=== PATIENT | male | born 1955 | race Caucasian/White ===

== ENCOUNTER 2020-05-05 10:37 | Emergency (ER) | payer OTHER ==
[~2020-05-05] VITALS: Ht 188 cm; Wt 113.4 kg
[~2020-05-05 10:37] MED LIST: ASPIRIN EC325 M1 PO; COLACE100 MG PO; DESYREL50 MG PO; DYAZIDE 37.5-21 EACH PO; Dapsone PO; IRON325 PO; NORCO 5-325 TA1 EACH; OXYIR 5 MG CAPSU5 M1; PRENATAL PO; PRILOSEC 20 MG20 MG PO; VERAPAMIL HCL240 MG PO; XARELTO10 M1 PO
[2020-05-05] MEDS ORDERED: PROAIR HFA8.5 GM INH (10:57)
[2020-05-05] MEDS ORDERED: ALLOPURINOL 10100 M3 PER TUBE (10:58)
[2020-05-05] MEDS ORDERED: ELIQUIS5 MG PER TUBE (11:00)
[2020-05-05] MEDS ORDERED: VITCB500GO PER TUBE (11:01)
[2020-05-05 14:00] VITALS: BP 149/69
== END 2020-05-05 14:53 ==
LOC: ER 10:37
DX: J95.03 Malfunction of tracheostomy stoma (principal); I10 Essential (primary) hypertension; F41.9 Anxiety disorder, unspecified; Z96.642 Presence of left artificial hip joint; Z79.899 Other long term (current) drug therapy; Z91.048 Other nonmedicinal substance allergy status; Y83.8 Other surgical procedures as the cause of abnormal reaction of the patient, or of later complication, without mention of misadventure at the time of the procedure; Y82.8 Other medical devices associated with adverse incidents

== ENCOUNTER 2020-05-11 19:26 | Inpatient (IN) | payer OTHER ==
[~2020-05-11] VITALS: Ht 182.9 cm; Wt 121.3 kg
[~2020-05-11 19:26] MED LIST changes: +ALLOPURINOL 10100 M3 PER TUBE; +ELIQUIS5 MG PER TUBE; +PROAIR HFA8.5 GM INH; +VITCB500GO PER TUBE
[2020-05-11 19:28] VITALS: BP 131/68
[2020-05-11 19:56] LABS: ABSOLUTE NEUTROPHILS 6.6 thou/uL (1.4-8.2); BASOPHILS 0.5 % (0.0-2.0); EOSINOPHILS 7.6 % (0.0-3.0); HEMATOCRIT 35.5 % (42.0-52.0); HEMOGLOBIN 11.9 gm/dL (14.0-18.0); LYMPHOCYTES 26.1 % (24.0-44.0); MCH 30.2 pg (26.0-34.0); MCHC 33.5 g/dL (28.0-37.0); MCV 90.1 fL (80.0-100.0); PLATELET COUNT 274 thou/uL (150-400); POLYS 60.8 % (36.0-66.0); RBC 3.94 mil/uL (4.50-6.00); RDW 14.7 % (10.5-14.5); WBC 10.8 thou/uL (4.0-11.0)
[2020-05-11] MEDS ORDERED: ALBUTEROL2.5 MG/0.5 INH (20:01)
[2020-05-11] MEDS ORDERED: BISACODYL10 MG PO (20:03)
[2020-05-11 20:05] LABS: APTT 31.7 Seconds (24.5-32.8); INR 1.2; PROTIME 12.4 Seconds (9.3-11.4)
[2020-05-11] MEDS ORDERED: PULMICORT0.25 MG/3 (20:05)
[2020-05-11] MEDS ORDERED: CHLORHEXIDINE PO (20:06)
[2020-05-11] MEDS ORDERED: CELEXA 10 MG TA10 M1 PO (20:09)
[2020-05-11] MEDS ORDERED: NEURONTIN300 MG PER TUBE (20:09)
[2020-05-11 20:20] LABS: URINE BILIRUBIN NEGATIVE (Negative); URINE BLOOD NEGATIVE (Negative); URINE CLARITY CLEAR; URINE COLOR YELLOW; URINE GLUCOSE-RANDOM* NEGATIVE (Negative); URINE KETONES NEGATIVE (Negative); URINE LEUKOCYTES-REFLEX NEGATIVE (Negative); URINE NITRITE-REFLEX NEGATIVE (Negative); URINE PROTEIN (DIPSTICK) NEGATIVE (Negative); URINE SPECIFIC GRAVITY 1.015 (1.005-1.035)
[2020-05-11 20:32] LABS: CALCIUM 8.8 mg/dL (8.5-10.1); CREATININE 0.7 mg/dL (0.7-1.3); POTASSIUM 3.2 mmol/L (3.5-5.1)
[2020-05-11 20:35] LABS: ALBUMIN 2.9 g/dL (3.4-5.0); TOTAL BILIRUBIN 0.4 mg/dL (0.2-1.0); TOTAL PROTEIN 7.3 g/dL (6.4-8.2)
[2020-05-11] MEDS ORDERED: HYDRALAZINE 5050 MG PO (20:49)
[2020-05-11] MEDS ORDERED: HYDRALAZINE 5050 MG PER TUBE (20:49)
[2020-05-11] MEDS ORDERED: IPRAT-ALBUT 0.5-3 ML INH (20:50)
[2020-05-11] MEDS ORDERED: ACIDOPHILUS1 EAC5 PER TUBE (20:50)
[2020-05-11] MEDS ORDERED: MELATONIN3 M1 PO (20:51)
[2020-05-11] MEDS ORDERED: LEVOTHYROXINE25 MC1 PER TUBE (20:51)
[2020-05-11] MEDS ORDERED: MELATIN3 MG PER TUBE (20:52)
[2020-05-11] MEDS ORDERED: MIRALAX17 G1 PER TUBE (20:52)
[2020-05-11] MEDS ORDERED: DAILY VALUE1 EAC1 PER TUBE (20:53)
[2020-05-11] MEDS ORDERED: NORVASC10 MG PER TUBE (20:53)
[2020-05-11] MEDS ORDERED: ROXICODONE5 MG PER TUBE (20:53)
[2020-05-11] MEDS ORDERED: EFFER-K 20 MEQ20 ME1 PER TUBE (20:54)
[2020-05-11] MEDS ORDERED: PROPRANOLO40 MG/5 ML PER TUBE (20:55)
[2020-05-11] MEDS ORDERED: PROSOURCE PROT946 ML PER TUBE (20:56)
[2020-05-11] MEDS ORDERED: SENNA PLUS TAB1 EACH PER TUBE (20:56)
[2020-05-11] MEDS ORDERED: SIMETHICONE125 M1 PER TUBE (20:57)
[2020-05-11] MEDS ORDERED: ZINC SULFATE220 MG PO (20:58)
[2020-05-11] MEDS ORDERED: ZINC SULFATE220 MG PER TUBE (20:58)
[2020-05-11] MEDS ORDERED: TRAZODONE HCL50 MG PER TUBE (20:58)
[2020-05-11] MEDS ORDERED: XANAX 0.5 MG0.5 MG PER TUBE (20:58)
[2020-05-11] MEDS ORDERED: SECURA PROTECTI50 GM TOP (20:59)
[2020-05-11 21:21] VITALS: BP 120/63
[2020-05-11 21:49] VITALS: BP 138/62
[2020-05-11 22:26] VITALS: BP 134/69
[2020-05-12 03:42] VITALS: BP 146/72
[2020-05-12 07:54] VITALS: BP 151/69
--- NOTE | 2020-05-12 08:05 | NUR ---
admit pt admitted from [facility] through er for pui r/o covid, wound care, mucous plug to trach t tube trach cleared in ed on tube with humidified o2 pt yelling out in pain 2 doses of fentanyl given without effect and 15 mg toradol ivp with slight effect pt slept for awhile after picture of right buttock wound, wound care consulted prafo boots on pt requesting removal but left in place continue poc.
--- NOTE | 2020-05-12 10:17 | EKG ---
[address] [place] [address] ELECTROCARDIOGRAM REPORT Name: TINY GOMEZ Room #: 352-P ADM IN M.R.#: [id number] Admission: 05/11/20 Attend Phys: Roland Fuller MD Discharge: Date of : 51 Report #: [id number] [facility] ED Test Date: 2020-05-11 Test Time: 19:41:56 Pat Name: TINY GOMEZ Department: Room: [facility] Gender: M Inspector [employer]: monty : 1955 Requested By: Domenioc Morris Order Number: [id number] MD: Davie Oh Measurements Intervals [place] Rate: 65 P: 11 AL: 187 QRS: 1 QRSD: 105 T: 49 QT: 420 QTc: 437 Interpretive Statements Sinus rhythm Baseline wander in lead(s) V4 No previous ECG available for comparison Electronically Signed On 05-12-2020 10:17:42 PLANT OPERATIONS COORDINATOR by Davie Oh [email or web address] <ELECTRONICALLY SIGNED> By: Davie Oh MD 05/12/207 40 40 MD BUBBA Gracia
[2020-05-12 12:21] VITALS: BP 151/92
[2020-05-12 15:33] LABS: HEMATOCRIT 31.1 % (42.0-52.0); HEMOGLOBIN 10.2 gm/dL (14.0-18.0); MCH 29.7 pg (26.0-34.0); MCV 90.1 fL (80.0-100.0); RBC 3.45 mil/uL (4.50-6.00); RDW 14.8 % (10.5-14.5); WBC 8.1 thou/uL (4.0-11.0)
[2020-05-12 15:37] LABS: CALCIUM 8.8 mg/dL (8.5-10.1); CREATININE 0.9 mg/dL (0.7-1.3); MAGNESIUM 1.4 mg/dL (1.8-2.4)
[2020-05-12 15:41] LABS: POTASSIUM 2.7 mmol/L (3.5-5.1)
[2020-05-12 15:42] VITALS: BP 165/78
--- NOTE | 2020-05-12 17:03 | NUR ---
RN ASSUMED PT'S CARE AT 0700AM, PT IS ON MASK O2 95% AT TRACH TO KEEP O2SAT AT 94-100%, PT HAS MEDICATIONS FOR PAIN, PT CAN FOLLOW COMMANDS, PT STARTS IV ABX AND PPN , HOLD TUBE FEEDING UNTILL VISUAL EDUCATION TEACHER TO SEE PT TOMORROW. PT'S COVID TEST IS NEGATIVE, PT'S ISOLATION HAS DC, PT HAS POTASSIUM AND MAGNESSIUM REPLACEMENT FOR ABNORMAL LAB RESULTS,RN WILL REPORT TO NEXT SHIFT TO CALL ENT CONSULT FOR RAFI VELASCO.
[2020-05-12 20:00] VITALS: BP 136/67
[2020-05-12 23:18] LABS: MAGNESIUM 1.7 mg/dL (1.8-2.4)
[2020-05-12 23:21] LABS: POTASSIUM 2.7 mmol/L (3.5-5.1)
[2020-05-13 00:01] VITALS: BP 139/68
[2020-05-13 03:00] VITALS: BP 130/68
--- NOTE | 2020-05-13 06:25 | NUR ---
PROGRESS PT ALERT AND ORIENTED BUT VERY ANXIOUS. YELLS OUT FREQUENTLY HARD TO CALM HIM DOWN HYDROMORPHONE GIVEN FOR PAIN X 2 WITH EFFECT PT SETTLED AND SLEPT FOR AWHILE AFTER. COMPLETE BEDBATH GIVEN AND SKIN MOISTURIZED SKIN DRY AND FLAKY. PERIAREA DRY RED AND PEELING FROM EXCORIATION CLEANSED AND BARRIER CREAM APPLIED. SWANSON CATHETER IN PLACE LOTS OF DRIED DRAINAGE CLEANSED FROM CATHETER AND SUROUNDING AREA. PT MOUTH SWABBED AND DENTURES PLACED IN DENTURE CUP. PT HAS CONTRACTURES OF BOTH FEET AND HAS SCD'S AND PRAFO BOOTS IN PLACE. PT TO TRANSFER TO ROOM 217 SOON REPORT IS GIVEN.
[2020-05-13 07:28] LABS: HEMATOCRIT 32.8 % (42.0-52.0); HEMOGLOBIN 10.7 gm/dL (14.0-18.0); MCH 29.8 pg (26.0-34.0); MCHC 32.8 g/dL (28.0-37.0); MCV 90.9 fL (80.0-100.0); RBC 3.6 mil/uL (4.50-6.00); RDW 14.7 % (10.5-14.5); WBC 6.5 thou/uL (4.0-11.0)
[2020-05-13 07:34] VITALS: BP 132/53
[2020-05-13 07:48] LABS: CALCIUM 9.2 mg/dL (8.5-10.1); CREATININE 0.7 mg/dL (0.7-1.3); POTASSIUM 3.4 mmol/L (3.5-5.1)
[2020-05-13 09:03] LABS: MAGNESIUM 1.8 mg/dL (1.8-2.4)
--- NOTE | 2020-05-13 10:02 | NUR ---
Nutrition: Pt usual diet is [facility] soft with thin liquids. REC ST eval if indicated as pt is currently NPO. REC D/C PPN when TF starts and diet advanced. TF order as follows: Jevity 1.5 at 80 mL/hr x 10 hrs (8p-6a)-closest equivalent to pt's usual regimen. Will order per Dr Ren.
[2020-05-13 11:22] VITALS: BP 130/60
--- NOTE | 2020-05-13 16:24 | NUR ---
TO UNIT FROM 3W BY BED. DENIES CP, SOA. SR/SA PER TELE. C/O BILAT LEG PAIN; MEDICATED FOR SAME ORDERED. FALL PRECAUTIONS IN PLACE.
[2020-05-13 16:45] VITALS: BP 139/62
[2020-05-13 20:08] VITALS: BP 150/73
[2020-05-14 03:40] VITALS: BP 153/73
[2020-05-14 05:39] LABS: HEMATOCRIT 32.8 % (42.0-52.0); HEMOGLOBIN 10.8 gm/dL (14.0-18.0); MCHC 33.1 g/dL (28.0-37.0); MCV 90.9 fL (80.0-100.0); RBC 3.61 mil/uL (4.50-6.00); WBC 5.6 thou/uL (4.0-11.0)
[2020-05-14 06:08] LABS: CALCIUM 9.2 mg/dL (8.5-10.1); CREATININE 0.8 mg/dL (0.7-1.3)
[2020-05-14 07:30] VITALS: BP 152/78
[2020-05-14 12:00] VITALS: BP 152/81
--- NOTE | 2020-05-14 13:42 | NUR ---
Patient admits from [facility] with hypoxia. Patient has trach and prev positive for COVID. Patient is on skilled care at facility not ltc. Patient prev at [facility] then transferred to [facility] 04/25/19. Patient alert/orientated but yells out at times. Sp with sister Keri reviewed role of casemgt. Plan return to [facility] once stable. Keri was not aware patient transferred to hospital. Requested [facility] call sister. Casemgt following.
[2020-05-14 15:30] VITALS: BP 157/69
--- NOTE | 2020-05-14 15:53 | NUR ---
AAOX4. REMAINS VERY ANXIOUS. MEDICATED FOR PAIN ORDERED. TURNED. ZGARD APPLIED TO BILAT BUTTOCKS, EXCORIATED. SR PER TELE. FALL PRECAUTIONS IN PLACE.
[2020-05-14 20:45] VITALS: BP 102/66
[2020-05-15 04:05] VITALS: BP 157/61
[2020-05-15 05:15] LABS: HEMATOCRIT 30.2 % (42.0-52.0); MCH 30.1 pg (26.0-34.0); MCV 91.2 fL (80.0-100.0); RBC 3.31 mil/uL (4.50-6.00); RDW 14.4 % (10.5-14.5); WBC 6.1 thou/uL (4.0-11.0)
[2020-05-15 05:34] LABS: CALCIUM 8.8 mg/dL (8.5-10.1); CREATININE 0.7 mg/dL (0.7-1.3)
[2020-05-15 05:45] LABS: POTASSIUM 2.9 mmol/L (3.5-5.1)
--- NOTE | 2020-05-15 07:33 | NUR ---
ASSUMED PT CARE AT 1900. VSS. PT A&0X4. ANXIOUS. TUBE FEEDING STARTED AT 20ML/HR 0300AM TODAY. TUBE FEEDING APPEARS CLOGGED THIS AM, REPORT PASSED ON TO DAY NURSE REGARDING THIS. OTHERWISE PT IS STABLE, WILL CONTINUE TO MONITOR
[2020-05-15 08:18] VITALS: BP 152/78
[2020-05-15] MEDS ORDERED: TOBI 300 M300 MG/5 M INH (14:58)
[2020-05-15] MEDS ORDERED: CIPRO500 MG PER TUBE (14:58)
[2020-05-15 16:07] VITALS: BP 152/79
--- NOTE | 2020-05-15 16:54 | NUR ---
Ten[facility] plan dc today. When arranging transport for return patient on 15 liters oxygen which cannot be accomadated at facility. Patient prec with trach capped and oxygen as needed. DC cancelled and Resp therapy weaning oxygen. Updated sister who was at bedside today that transfer cancelled. requested facility if they can inquire into humidified air for patient with a trach shield.
--- NOTE | 2020-05-15 18:49 | NUR ---
PT IS ALERT AND ORIENTED X4, ANXIOUS. PT HAS TRACH, MIDLINE, WITH TRACH SHIELD, 15L AT 35%. PEG TUBE INITIALLY NOT FLUSHING WHEN TAKING OVER CARES. PEG TUBE FLUSHES. SPEECH CONSULTED, VIDEO SWALLOW TEST CONDUCTED. POC IS TO HAVE PT EAT DIET DURING DAY AND PEG TUBE AT NIGHT RUN FOR TEN HOURS. PT IS AWARE OF PAIN MGMT. CONTINUE TO MONITOR AND ASSESS PT LEVEL OF PAIN, AND O2 SATURATION. WOUND CARE CONSULTED. FALL PRECAUTIONS IN PLACE. NO CONCERNS AT THIS TIME. INTENTION TO DISCHARGE TO FACILITY 05/16/2020.
[2020-05-15 19:00] VITALS: BP 154/73
[2020-05-16 04:45] VITALS: BP 149/72
[2020-05-16 04:58] LABS: HEMATOCRIT 31.3 % (42.0-52.0); HEMOGLOBIN 10.2 gm/dL (14.0-18.0); MCH 29.6 pg (26.0-34.0); MCHC 32.6 g/dL (28.0-37.0); MCV 90.7 fL (80.0-100.0); RBC 3.45 mil/uL (4.50-6.00); RDW 14.8 % (10.5-14.5); WBC 5.9 thou/uL (4.0-11.0)
[2020-05-16 05:09] LABS: CALCIUM 9.2 mg/dL (8.5-10.1); CREATININE 0.9 mg/dL (0.7-1.3); POTASSIUM 3.1 mmol/L (3.5-5.1)
[2020-05-16 07:25] VITALS: BP 152/76
[2020-05-16 10:45] VITALS: BP 152/76
--- NOTE | 2020-05-16 11:42 | NUR ---
Possible dc back to snf at [facility] today pending CT Chest. [place] liason updated. Pt will need 4liters of o2 with humidification per t-tube or trach shield. DC sr. merchandise planner to coordinate [facility] transport once dc orders confirmed and faxed to [place]. Chart copy is in progress. Care team updated. Pt aware. Will update his sister once dc and time is confirmed.
--- NOTE | 2020-05-16 12:07 | HC ---
[facility] [place] [address] CONSULTATION Name: TINY GOMEZ Room #: 217-P ADM IN M.R.#: [id number] Admission: 05/11/20 Attend Phys: Roland Fuller MD Discharge: Date of : 51 Report #: [id number] THIS REPORT FOR: cc: Demarcus Snow James D. DO Barry, Joseph W. MD ~ DATE OF SERVICE: 05/15/2020 INFECTIOUS DISEASE CONSULTATION ATTENDING PHYSICIAN: Dr. Ren. REASON FOR EVALUATION: Recommendations for antibiotic therapy in a patient with chronic respiratory failure, does have a tracheostomy, on supplemental oxygen, has isolation of Pseudomonas from sputum. HISTORY OF PRESENT ILLNESS: Chart reviewed, patient examined. This is a 64-year-old with fairly extensive medical history, has underlying lung disease as well as celiac disease, who has had severe pneumonitis relative to COVID-19 infection. This led to prolonged mechanical ventilatory support and ultimately a tracheostomy and PEG replaced as well. He has been on supplemental oxygen since his discharge and has been in a facility. He is having increasing difficulty with frequent cough, respiratory distress, was found to be hypoxic with saturations in the 80s due to concerns about worsening situation. He was evaluated in the Emergency Room, was confirmed to be COVID negative. Chest x-ray showed cardiomegaly, mediastinal widening and severe bilateral infiltrates. Sputum culture was collected, had polymicrobial growth including corynebacterium as well as Pseudomonas aeruginosa, the latter resistant in vitro to aztreonam and meropenem. He did undergo a swallow study, which was unremarkable with no evidence of aspiration. He is currently on supplemental oxygen at baseline, trach mask at 35%. Denies significant pain, although does admit to headache and perhaps right ear discomfort. He has been empirically placed on vancomycin as well as Zosyn. During the hospitalization, he was evaluated by ENT, they actually put a larger tracheostomy tube in place, seems to have improved the overall situation. ALLERGIES: None known. CURRENT MEDICATIONS: Include vancomycin, atropine, albuterol inhaler, trazodone, acetylcysteine, lorazepam, ascorbic acid, citalopram, amlodipine, gabapentin, budesonide, levothyroxine, Zosyn. PAST MEDICAL HISTORY: History of celiac disease, apparently dermatitis herpetiformis, chronic respiratory failure due to sequelae from COVID-19 infection and pneumonia, COPD, hepatitis C, chronic anemia, hypothyroidism, [place] [address] CONSULTATION Name: TINY GOMEZ Room #: 217-P [facility]#: [id number] Admission: 05/11/20 Attend Phys: Roland Fuller MD Discharge: Date of : 51 Report #: [id number] depression, anxiety, history of gout, BPH, peripheral neuropathy, hypertension. SOCIAL HISTORY: Former smoker. FAMILY HISTORY: Noncontributory. REVIEW OF SYSTEMS: Otherwise, unremarkable 10-point review of systems. PHYSICAL EXAMINATION: GENERAL: Appears chronically ill. He is obese, although undernourished, [id number] distress. VITAL SIGNS: Temperature 97, pulse 73, respirations 18, blood pressure 152/78. SKIN: Warm, dry, no rashes. HEENT AND NECK: Has tracheostomy in place with shield. Neck appears to be supple. Normocephalic. Extraocular muscles intact. LUNGS: Few scattered coarse breath sounds. HEART: Distant, regular. I do not appreciate a murmur. ABDOMEN: Obese. Mildly firm, nontender. EXTREMITIES: No cyanosis. GENITOURINARY AND RECTAL: Deferred. LABORATORY DATA: Sodium 138, potassium 2.9, chloride 103, bicarbonate is 27, anion gap of 8, BUN and creatinine 11 and 0.7. CBC: White count 6.1, H and H 10.0 and 30.2, platelets of 186. Sputum culture growth of corynebacterium and Pseudomonas. Gram stain showed rare gram-positive cocci, moderate gram-positive rods with a few PMNs, peripheral infiltrates, perihilar infiltrates, widening of central mediastinum. Blood cultures are sterile thus far. MRSA PCR surveillance was positive as well. ASSESSMENT: Chronic respiratory failure complicated by pneumonitis with isolation of Pseudomonas, also other factors, I think including mucus plugging as well as likely undersized trach that has been corrected. He generally feels better. He is still on supplemental oxygen, although it is not clear he has got significant underlying lung disease. We will transition to fluoroquinolone and inhaled tobramycin. I think we can discontinue the vancomycin, critically ill to continue supportive measures, optimize nutritional status. Ultimately wean off tracheostomy, discussed with the patient's family member. <ELECTRONICALLY SIGNED> By: Zev Shea MD 05/16/20 1207 [id number] Zev Shea MD /nt
--- NOTE | 2020-05-16 13:10 | NUR ---
DISCHARGE ORDERS/SUMMARY WERE FAXED TO [facility] BY PATI/COOK SUPERVISOR. [facility] WILL FIREMAN PATIENT AT TODAY AT 14:00. PATIENT'S SISTER - ROJAS WAS NOTIFIED OF TIME OF TRANSFER. NURSING NOTIFIED AND CHART COPY COMPLETED. [facility] P [phone].
--- NOTE | 2020-05-16 14:03 | NUR ---
ASSUMED CARE PT SHIFT CHANGE. VSS. PT ALERT AND ORIENTED. O2 SATS WNL 35%. PT ON 4L O2 TOLERATING WELL. CT SCAN NEG FOR PE. MAG LOW REPLACED. DC ORDERS FOR FACILITY. REPORT TO BE CALLED. PT LEFT UNIT VIA AMBULANCE AT APPROX 1400 WITH ALL BELONGINGS.
--- NOTE | 2020-05-16 14:32 | HC ---
[facility] [place] [address] CONSULTATION Name: TINY GOMEZ Room #: 217-P [facility] IN M.R.#: [id number] Admission: 05/11/20 Attend Phys: Roland Fuller MD Discharge: 05/16/20 Date of : 51 Report #: [id number] THIS REPORT FOR: cc: Demarcus Snow James D. DO Stephens, Thad A. MD ~ DATE OF SERVICE: 05/13/2020 CHIEF COMPLAINT: Sacral decubitus ulcer. HISTORY OF PRESENT ILLNESS: This is a 64-year-old white male who is a resident in a long-term care facility, who was brought in for mucous plugging of his tracheostomy site. Upon admission, the patient was noted to have a sacral decubitus ulcer, which we have been asked to follow up for. The patient denies any other associated wounds at this time. Nursing staff denies any new wounds as well. The patient states he has had this wound for several weeks and was a result of being hospitalized for COVID-19 respiratory infection. PAST MEDICAL HISTORY: Significant for pneumonia, COPD, hepatitis C, depression, COVID-19 infection, dysphagia, hypertension, and pulmonary embolism. CURRENT MEDICATIONS: Multiple, I reviewed the patient's medication list. DRUG ALLERGIES: None. SOCIAL HISTORY: The patient states that he is essentially bedbound and is currently residing in a long-term care facility. FAMILY HISTORY: Not pertinent to current medical condition. REVIEW OF SYSTEMS: CONSTITUTIONAL: The patient denies fevers or chills. NEUROLOGIC: The patient complains of generalized overall weakness. EYES: No complaints. ENT: No complaints. CARDIAC: The patient denies chest pain, palpitations or peripheral edema. RESPIRATORY: The patient complains of shortness of breath and had associated mucus plugging of his tracheostomy site. GASTROINTESTINAL: The patient denies nausea, vomiting, or abdominal pain. GENITOURINARY: The patient denies urgency or frequency. MUSCULOSKELETAL: No complaints. SKIN: The patient has decubitus ulcers in the sacral region. PHYSICAL EXAMINATION: VITAL SIGNS: Stable. The patient is afebrile. [address] [address] CONSULTATION Name: TINY GOMEZ Room #: 217-P [facility] IN M.R.#: [id number] Admission: 05/11/20 Attend Phys: Roland Fulelr MD Discharge: 05/16/20 Date of : 51 Report #: [id number] GENERAL: This is an alert and oriented x2, person and place, but not time, chronically ill-appearing white male who is in no obvious distress. HEENT: Normocephalic, atraumatic. Mucous membranes are dry. Pupils are round. Sclerae are white. NECK: Tracheostomy, T-tube is in place. LUNGS: Diminished breath sounds heard throughout with rhonchi heard throughout. HEART: Regular. ABDOMEN: Soft, nontender. EXTREMITIES: The patient moves all extremities with slight difficulty. Bilateral heels are intact. NEUROLOGIC: Cranial nerves 2-12 grossly intact. Motor and sensory grossly intact. Evaluation of sacrococcygeal region reveals stage 3 decubitus ulcers, which are scattered superficial in the sacral-gluteal region. No signs of overt infection. LABORATORY DATA: White count 6.5, hemoglobin 10.7. CRP is 63.5. Albumin is 2.9. IMPRESSION: 1. Multiple stage 3 decubitus ulcers in the sacral-gluteal region, all superficial without signs of infection. 2. Acute on chronic hypoxic respiratory failure with mucus plugging. 3. Hypothyroidism. 4. Hypertension. 5. History of dysphagia. 6. Moderate protein-calorie malnutrition, albumin 2.9. 7. Generalized weakness. PLAN: We will have the patient placed on low air loss surface, have him turned every 2 hours. We will start Z-Guard to the sacral-gluteal ulcers and leave open to air. We will do this twice daily and p.r.n. Make sure we maximize the patient's oral protein supplementation for healing. We will utilize physical and occupational therapies for strengthening. We will continue all other current medications. I appreciate ability to consult. We will continue to follow the patient. <ELECTRONICALLY SIGNED> By: Liang Rosa MD 05/16/20 1432 1320 1333 Liang Rosa MD /nt
== END 2020-05-16 14:05 | DRG 205 ==
LOC: ER 19:26 → 3W 21:16 → EROBS 21:16 → 2N 21:16 → 3W 22:05 → 2N 05-13 09:01
PROVIDERS: Emergency Medicine; Internal Medicine; ADMIT Hospitalist; ATTEND Hospitalist
DX: J95.03 Malfunction of tracheostomy stoma (principal); L89.153 Pressure ulcer of sacral region, stage 3; L89.303 Pressure ulcer of unspecified buttock, stage 3; J96.21 Acute and chronic respiratory failure with hypoxia; J15.1 Pneumonia due to Pseudomonas; J96.22 Acute and chronic respiratory failure with hypercapnia; T17.590A Other foreign object in bronchus causing asphyxiation, initial encounter; E44.0 Moderate protein-calorie malnutrition; J44.0 Chronic obstructive pulmonary disease with (acute) lower respiratory infection; N18.30 Chronic kidney disease, stage 3 unspecified; Z96.642 Presence of left artificial hip joint; F41.9 Anxiety disorder, unspecified; E03.9 Hypothyroidism, unspecified; R13.10 Dysphagia, unspecified; Y83.8 Other surgical procedures as the cause of abnormal reaction of the patient, or of later complication, without mention of misadventure at the time of the procedure; Z86.16 Personal history of COVID-19; I12.9 Hypertensive chronic kidney disease with stage 1 through stage 4 chronic kidney disease, or unspecified chronic kidney disease; E87.6 Hypokalemia; M10.9 Gout, unspecified; N40.0 Benign prostatic hyperplasia without lower urinary tract symptoms; G62.9 Polyneuropathy, unspecified; Z87.891 Personal history of nicotine dependence; Z86.711 Personal history of pulmonary embolism; Z88.8 Allergy status to other drugs, medicaments and biological substances; Z86.19 Personal history of other infectious and parasitic diseases; Z68.36 Body mass index [BMI] 36.0-36.9, adult; Z20.822 Contact with and (suspected) exposure to COVID-19
CPT/HCPCS: 10081; 10879